=== PATIENT | male | born 1945 | race Caucasian/White ===

== ENCOUNTER 2017-06-09 20:04 | Emergency (ER) | payer BC ==
[2017-06-09 20:24] VITALS: BP 139/89
--- NOTE | 2017-06-09 21:06 | RAD ---
Indication: Abdominal pain. Flat and upright views of the abdomen demonstrates no free air. No dilated loops of bowel are noted. The colon is filled with stool. No organomegaly is noted. IMPRESSION: No free air or obstruction is noted.
--- NOTE | 2017-06-09 21:33 | UC ---
Abdominal Pain Male HPI - HPI Summary HPI Summary: abdominal pain x 4 weeks diffuse abdominal pain , - History of Current Complaint Chief Complaint: UCAbdominalPain Stated Complaint: STOMACH ACHE FOR WEEKS Time Seen by Provider: 06/09/17 20:26 Hx Obtained From: Patient Onset/Duration: Gradual Onset, Lasting Weeks - 4, Still Present Timing: Constant Severity Initially: Moderate Severity Currently: Moderate Pain Intensity: 0 Pain Scale Used: 0-10 Numeric Location: Diffuse Radiates: No Character: Aching, Other - bloated Aggravating Factor(s): Food Alleviating Factor(s): Other - movement Associated Signs And Symptoms: Negative: Diaphoresis, Fever, Cough, Chest Pain, Dizzy, Back Pain, Constipation, Blood in Stool, Urinary Symptoms, Decreased Appetite, Nausea, Vomiting, Diarrhea, Penile Discharge - Allergies/Home Medications Allergies/Adverse Reactions: Allergies Allergy/AdvReac Type Severity Reaction Status Date / Time No Known Allergies Allergy Verified 06/09/17 20:19 Home Medications: Home Medications Zolpidem Tartrate [Zolpidem Tartrate ER] 12.5 mg PO DAILY 06/09/17 [History Confirmed 06/09/17] PMH/Surg Hx/FS Hx/Imm Hx GI/ History: Gastroesophageal Reflux Psychological History: Anxiety - Surgical History Surgical History: Yes Surgery Procedure, Year, and Place: Testicular cancer removed testicle 1989 - Family History Known Family History: Positive: Hypertension - Social History Alcohol Use: None Substance Use Type: None Smoking Status (MU): Never Smoked Tobacco Review of Systems Constitutional: Negative Skin: Negative Eyes: Negative ENT: Negative Respiratory: Negative Gastrointestinal: Abdominal Pain Is Patient Immunocompromised?: No All Other Systems Reviewed And Are Negative: Yes Physical Exam Triage Information Reviewed: Yes Appearance: Well-Appearing, No Pain Distress, Well-Nourished Vital Signs: Initial Vital Signs Temp 98.2 F 06/09/17 20:14 Pulse 72 06/09/17 20:14 Resp 16 06/09/17 20:14 BP 139/89 06/09/17 20:14 Pulse Ox 96 06/09/17 20:14 Vital Signs Reviewed: Yes Eyes: Positive: Conjunctiva Clear ENT: Positive: Normal ENT inspection, Hearing grossly normal, Pharynx normal Neck: Positive: Supple, Nontender, No Lymphadenopathy Respiratory: Positive: Chest non-tender, Lungs clear, Normal breath sounds Cardiovascular Exam: Normal Cardiovascular: Positive: RRR, No Murmur, Pulses Normal Abdomen Description: Positive: No Organomegaly, Soft, Other: - diffuse tenderness. Negative: CVA Tenderness (R), CVA Tenderness (L), Distended, Guarding Bowel Sounds: Positive: Present Diagnostics - Laboratory Diagnostic Studies Completed/Ordered: KUB : WNL Abd Pain Male Course/Dx - Differential Dx/Clinical Impression Provider Diagnoses: abdominal pain Discharge - Discharge Plan Condition: Stable Disposition: HOME Patient Education Materials: Abdominal Pain (ED) Referrals: Alfredo Aguirre MD [Primary Care Provider] - 2 Days
[2017-06-10 10:55] LABS: Hematocrit 46 % (42-52); Hemoglobin 15.5 g/dl (14.0-18.0); Mean Corpuscular HGB Conc 34 g/dl (31-36); Mean Corpuscular Hemoglobin 30 pg (27-31); Mean Corpuscular Volume 88 fL (80-94); Mean Platelet Volume 8 um3 (7.4-10.4); Red Cell Distribution Width 13 % (10.5-15); White Blood Count 4.4 10^3/ul (3.5-10.8)
[2017-06-10 11:06] LABS: ALT 12 U/L (7-52); Albumin 4.4 g/dL (3.2-5.2); Alkaline Phosphatase 83 U/L (34-104); BUN/Creatinine Ratio 16.1 (8-20); Blood Urea Nitrogen 23 mg/dL (6-24); CO2 Carbon Dioxide 29 mmol/L (22-32); Calcium 9.4 mg/dL (8.6-10.3); Chloride 102 mmol/L (101-111); EGFR African American 62.9 (>60); EGFR Non-African American 48.9 (>60); Globulin 2.8 g/dL (2-4); Glucose 81 mg/dL (70-100); Sodium 138 mmol/L (133-145); Total Protein 7.2 g/dL (6.4-8.9)
[2017-06-10 11:09] LABS: Anion Gap 7 mmol/L (2-11)
--- NOTE | 2017-06-10 12:27 | UC ---
Progress - Progress Note Progress Note: Potassium and AST could not be run by the labs. Please tell patient to f/u with pcp to complete these tests if still needed. If he is worse at any point, return to ED.
== END 2017-06-09 21:21 | disposition home or self-care (01) ==
LOC: UCCORT 20:04
DX: R10.84 Generalized abdominal pain (principal); K21.9 Gastro-esophageal reflux disease without esophagitis; F41.9 Anxiety disorder, unspecified
CPT/HCPCS: 36415; 74000; 80053; 85025; 99211; G0463

== ENCOUNTER 2019-02-06 10:33 | Emergency (ER) | payer BC ==
[2019-02-06 10:55] VITALS: BP 112/72
--- NOTE | 2019-02-06 11:01 | UC ---
UC General HPI - HPI Summary HPI Summary: 74 year old male presents with complaint of constipation for a month. Notes, nausea, no vomiting, decreased appetite, lower abdomen feels full but no abdominal pain. Has sensation of having to have bm but unable. Has been alternating small amount of diarrhea, soft stools every two to three days, and decrease in caliber of stools over the past month. He has tried Miralax, Dulcolax capsules and liquid, and Fleets enema with minimal relief. Denies previous similar episodes. He has had increased stress in the last month with traveling, unexpected house guests, and building a house. States his last colonoscopy was ~2 years ago, h.o polyps. 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 Negative: Back Pain, Chest Pain, Dizziness, Dysuria, Fever, Hematemesis, Melena, Vomiting, Weakness - Allergy/Home Medications Allergies/Adverse Reactions: Allergies Allergy/AdvReac Type Severity Reaction Status Date / Time No Known Allergies Allergy Verified 02/06/19 10:46 Home Medications: Home Medications Aspirin EC TAB* [Ecotrin EC Low Dose 81 MG*] 81 mg PO DAILY 02/06/19 [History Confirmed 02/06/19] Dicyclomine CAP* [Bentyl CAP*] 10 mg PO TID PRN 02/06/19 [History Confirmed 10/22] Fluticasone NASAL SPRAY 50MCG* [Flonase NASAL SPRAY 50MCG*] 2 spray BOTH NARES DAILY PRN 02/06/19 [History Confirmed 02/06/19] Hydrocortisone 1% CREAM* [Hytone Cream 1%*] 1 applic TOPICAL BID PRN 02/06/19 [ History Confirmed 02/06/19] Nefazodone HCl TAB* [Serzone TAB*] 150 mg PO BID 02/06/19 [History Confirmed 10/22] Nystatin CREAM* [Nystatin Cream*] 1 applic TOPICAL BID PRN 02/06/19 [History Confirmed 02/06/19] Omeprazole (Nf) [Prilosec (NF)] 40 mg PO DAILY 02/06/19 [History Confirmed 02/06] Rosuvastatin (NF) [Crestor (NF)] 10 mg PO DAILY 02/06/19 [History Confirmed 10/22] Vits A and D/White Pet/Lanolin [A and D Ointment] 1 applic TOPICAL SEE INSTRUCTIONS PRN 02/06/19 [History Confirmed 02/06/19] Zolpidem Tartrate [Zolpidem Tartrate ER] 12.5 mg PO BEDTIME PRN 02/06/19 [ History Confirmed 02/06/19] PMH/Surg Hx/FS Hx/Imm Hx Previously Healthy: Yes Cardiovascular History: Other - HLD GI/ History: Gastroesophageal Reflux Cancer History: Other - testicular cancer 1989 - Surgical History Surgical History: Yes Surgery Procedure, Year, and Place: Right Orchectomy, 1989 - Family History Known Family History: Positive: Hypertension - Social History Alcohol Use: None Substance Use Type: None Smoking Status (MU): Never Smoked Tobacco Review of Systems All Other Systems Reviewed And Are Negative: Yes Constitutional: Negative: Fever, Chills, Fatigue Skin: Negative: Rash Eyes: Positive: Negative ENT: Negative: Sore Throat, Nasal Discharge Respiratory: Negative: Shortness Of Breath Cardiovascular: Negative: Palpitations, Chest Pain Gastrointestinal: Positive: Abdominal Pain - more discomfort, Nausea, Other - Constipation, see hpi.. Negative: Vomiting, Diarrhea Genitourinary: Positive: Negative Motor: Positive: Negative Neurovascular: Positive: Negative Musculoskeletal: Positive: Negative Neurological: Positive: Negative Psychological: Positive: Negative Physical Exam Triage Information Reviewed: Yes Appearance: Well-Appearing, No Pain Distress, Well-Nourished Vital Signs: Initial Vital Signs Temp 98.3 F 02/06/19 10:41 Pulse 82 02/06/19 10:41 Resp 16 02/06/19 10:41 BP 112/72 02/06/19 10:41 Pulse Ox 95 02/06/19 10:41 Vital Signs Reviewed: Yes Eyes: Positive: Conjunctiva Clear ENT: Positive: Normal ENT inspection Neck: Positive: Supple, Nontender, No Lymphadenopathy Respiratory: Positive: Lungs clear, Normal breath sounds. Negative: Crackles, Rhonchi, Wheezing Cardiovascular: Positive: RRR, No Murmur Abdomen Description: Positive: Nontender, Soft, Other: - generalized fullnes throughout the abdomen. Rectal exam shows normal tone, no external nor internal lesions/masses palpable to finger length, no prostate masses palpable, brown stool. Hemoccult negative.. Negative: Bruit, Distended, Guarding Bowel Sounds: Positive: Present, Hyperactive Musculoskeletal Exam: Normal Neurological Exam: Normal Psychological Exam: Normal Skin Exam: Normal Diagnostics - Radiology No standard instances Radiology Interpretation Completed By: Radiologist Summary of Radiographic Findings: CT ABD/PELVIS. IMPRESSION: 1. MODERATE STOOL VOLUME IN THE ASCENDING AND TRANSVERSE COLON. 2. NO SUSPICIOUS LYMPHADENOPATHY BY SIZE CRITERIA. 3. DIVERTICULOSIS WITH NO SECONDARY SIGNS OF INFLAMMATION. Course/Dx - Differential Dx - Multi-Symptom Differential Diagnoses: Other - Colonic mass - Diagnoses Provider Diagnosis: Constipation Discharge - Sign-Out/Discharge Documenting (check all that apply): Patient Departure All imaging exams completed and their final reports reviewed: Yes - Discharge Plan Condition: Stable Disposition: HOME Patient Education Materials: Constipation (ED) Referrals: Alfredo Aguirre MD [Primary Care Provider] - Additional Instructions: Increase your fluid and fiber intake. Recommend Miralax 2 capfuls daily until bowel movements normalize. Follow-up with your primary care and grounds restoration specialist for your symptoms for colonoscopy recommendations. If abdominal pain, fever or vomiting develop, report to Urgent Care or the Emergency Department. - Billing Disposition and Condition Condition: STABLE Disposition: Home
== END 2019-02-06 12:16 | disposition home or self-care (01) ==
LOC: UCCORT 10:33
DX: K59.00 Constipation, unspecified (principal); K21.9 Gastro-esophageal reflux disease without esophagitis; Z85.47 Personal history of malignant neoplasm of testis
CPT/HCPCS: 74176; 82272; 99212; G0463

== ENCOUNTER 2019-06-10 12:14 | Emergency (ER) | payer BC ==
--- NOTE | 2019-06-10 12:25 | UC ---
Throat Pain/Nasal Suresh HPI - HPI Summary HPI Summary: 74 yo male presents with dizziness and rib pain. He tells me that 5 days ago he developed right ear pain, decreased hearing, and dizziness. 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 That same day he noticed that his b/l ribs were hurting with movement. He is in the process of building a house and has been doing a lot of heavy lifting, climbing, and general upper body work, therefore attributes his rib pain to this. Since that time his symptoms have persisted. No better or worse. He has not been taking anything OTC for his symptoms. He mentions that he feels his vision has been blurry b/l since ear symptoms began. He denies headache, head trauma or fall, neck pain, back pain, SOB, chest pain, CHU, abdominal pain, n/v, weakness, or numbness. Fam hx of HLD and HTN, but no known SD that pt is aware of. Pt has a history of testicular cancer in 1988 and had a testicle removed at that time - there was an apparent complication and pt has needed to cath himself daily since that time. - History of Current Complaint Stated Complaint: DIZZINESS,RIB PAIN Time Seen by Provider: 06/10/19 12:25 Hx Obtained From: Patient Severity: Mild Pain Intensity: 2 Pain Scale Used: 0-10 Numeric - Allergies/Home Medications Allergies/Adverse Reactions: Allergies Allergy/AdvReac Type Severity Reaction Status Date / Time No Known Allergies Allergy Verified 06/10/19 12:29 PMH/Surg Hx/FS Hx/Imm Hx - Additional Past Medical History Additional PMH: HEpatitis Depression GERD Testicular cancer 1988 Endocrine History: Dyslipidemia - Surgical History Surgical History: Yes Surgery Procedure, Year, and Place: Right Orchectomy, 1989 - Family History Known Family History: Positive: Hypertension - Social History Lives: With Family Alcohol Use: None Substance Use Type: None Smoking Status (MU): Never Smoked Tobacco Review of Systems All Other Systems Reviewed And Are Negative: No Constitutional: Positive: Negative Skin: Positive: Negative Eyes: Positive: Negative ENT: Positive: Ear Ache Respiratory: Positive: Negative Cardiovascular: Positive: Negative Gastrointestinal: Positive: Negative Genitourinary: Positive: Negative Motor: Positive: Negative Neurovascular: Positive: Negative Musculoskeletal: Positive: Other: - b/l rib pain Neurological: Positive: Negative Psychological: Positive: Negative Physical Exam - Summary Physical Exam Summary: GENERAL: NAD. WDWN. No pain distress. SKIN: No rashes, sores, ulcers, masses, lesions. HEENT: Head: AT/NC. Eyes: PERRLA. EOM intact. Conjunctiva clear without inflammation or discharge. Ears: Hearing decreased on right compared to left. TMs intact, no bulging, erythema, or edema. No hemotympanum Nose: Nasal mucosa pink and moist. NTTP maxillary and frontal sinus. Throat: Posterior oropharynx without exudates, erythema, or tonsillar enlargement. Uvula midline. NECK: Supple. Nontender. FROM CHEST: CTAB. No r/r/w. No accessory muscle use. Breathing comfortably and in no distress. CV: RRR. Pulses intact. Brisk cap refill. ABDOMEN: Soft. NTTP. Bowel sounds present MSK: FROM in B/L UEs and LEs with symmetric strength. Pain in intercoastal muscles with truncal twisting. NEURO: A&Ox3. 3 word recall, remote, recent memory, ability to follow 2-step directions, and attention intact. CN: II: Peripheral zarate intact. Vision normal. III, IV, : EOMI. No nystagmus. PERRLA. V: Sensations intact and symmetric. Opens mouth and clenches teeth. VII: No facial asymmetry. Forehead wrinkles. Grins, shuts eyes, frowns, puffs cheeks. VIII: Hearing intact to finger rub. IX, X: Swallows and coughs. Uvula midline. XI: Shrugs shoulders. Turns head against resistance. XII: No tongue deviation [id number] are intact. Gait with normal base. Romberg: maintains balance, no pronator drift. Normal speech. No facial drooping. PSYCH: Age appropriate behavior. Triage Information Reviewed: Yes Vital Signs: Vital Signs: Temp Pulse Resp BP Pulse Ox 98.0 F 87 18 128/78 95 06/10/19 12:22 06/10/19 12:22 06/10/19 12:22 06/10/19 12:22 06/10/19 12:22 Vital Signs Reviewed: Yes Diagnostics - EKG EKG Comparison: Other Summary of EKG Findings: 76 bpm NSR. No STEMI as read by Dr. Jinny Alfaro Throat Pain/Nasal Course/Dx - Course Course Of Treatment: EKG as above. His symptoms today favor an MSK origin to his rib pain and a flare of his menieres causing his dizziness and hearing changes. Given his history and risk factors, however, I recommended that he go to the ER for further evaluation. He and his were agreeable to this and will drive him now. - Differential Dx/Diagnosis Provider Diagnosis: Dizziness, Decreased hearing, Rib pain Discharge ED - Sign-Out/Discharge Documenting (check all that apply): Patient Departure All imaging exams completed and their final reports reviewed: No Studies - Discharge Plan Condition: Stable Disposition: HOME-RECOMMEND TO ED Referrals: Alfredo Aguirre MD [Primary Care Provider] - Additional Instructions: I recommend that you go to the ER for further evaluation of your dizziness and rib pain - Billing Disposition and Condition Condition: STABLE Disposition: Home-Recommend to ED
[2019-06-10 12:29] VITALS: BP 128/78
== END 2019-06-10 12:56 | disposition home health service (06) ==
LOC: UCCORT 12:14
DX: R07.81 Pleurodynia (principal); R42 Dizziness and giddiness; H93.8X1 Other specified disorders of right ear; H92.01 Otalgia, right ear; Z85.47 Personal history of malignant neoplasm of testis
CPT/HCPCS: 93005; 99212; G0463